=== PATIENT | female | born 1945 | race Caucasian/White ===

== ENCOUNTER → 2020-06-02 | Outpatient (CLI) | payer OTHER, MEDICARE ==
[~2020-06-02] MED LIST: BRINTELLIX20 MG PO; FLUT.05NI; HYDACE5 PO; IBUP600 PO; Mirapex1 MG; PROM25 PO; Voltaren100 GM
== END | disposition home or self-care (01) ==
LOC: LAB SHORT 15:51 → LAB 15:51
DX: N39.0 Urinary tract infection, site not specified (principal)
CPT/HCPCS: 87086

== ENCOUNTER 2020-12-27 08:51 | Emergency (ER) | payer OTHER, MEDICARE ==
[~2020-12-27] VITALS: Ht 165.1 cm; Wt 63.5 kg
[2020-12-27] MEDS ORDERED: Doxepin HC10 MG/1 ML PO (10:56)
[2020-12-27] MEDS ORDERED: Mirapex1.5 MG PO (10:57)
[2020-12-27 11:08] LABS: BASOPHILS ABSOLUTE AUTO 0.02 K/mm3 (0.00-0.23); BASOPHILS PERCENT AUTO 1 % (0-2); EOSINOPHILS ABSOLUTE AUTO 0.05 K/mm3 (0.00-0.68); EOSINOPHILS PERCENT AUTO 1 % (0-6); Hematocrit 41.4 % (33.0-51.0); Hemoglobin 13.5 g/dL (11.5-16.0); IMMATURE GRAN ABSOLUTE AUTO 0.02 K/mm3 (0.00-0.10); IMMATURE GRAN PERCENT AUTO 1 % (0-1); LYMPHOCYTES ABSOLUTE AUTO 1.41 K/mm3 (0.84-5.20); LYMPHOCYTES PERCENT AUTO 33 % (21-46); MONOCYTES ABSOLUTE AUTO 0.28 K/mm3 (0.16-1.47); MONOCYTES PERCENT AUTO 7 % (4-13); Mean Corpuscular HGB 30.2 pg (26.0-34.0); Mean Corpuscular HGB Conc 32.6 g/dL (31.5-36.5); Mean Corpuscular Volume 93 fL (80-100); Mean Platelet Volume 10.1 fL (9.1-12.4); NEUTROPHILS ABSOLUTE AUTO 2.55 K/mm3 (1.96-9.15); NEUTROPHILS PERCENT AUTO 59 % (41-73); Platelet Count 153 K/mm3 (150-400); RDW Coefficient Variation 12.8 % (11.7-14.2); RDW Standard Deviation 43.3 fL (35.1-46.3); Red Blood Cell Count 4.47 M/mm3 (3.80-5.20); White Blood Cell Count 4.33 K/mm3 (4.00-11.30)
[2020-12-27 11:32] LABS: Alanine Aminotransfer (ALT/SGP 24 U/L (12-78); Albumin, Blood 3.7 g/dL (3.4-5.0); Albumin/Globulin Ratio 1.1 (0.8-1.8); Alk Phos 72 U/L (50-136); Anion Gap 2 mmol/L (6-16); Aspartate Aminotrans (AST/SGOT 20 U/L (12-37); Bilirubin, Total 0.5 mg/dL (0.1-1.0); Blood Urea Nitrogen 13 mg/dL (8-24); Bun/Creatinine Ratio 16.6 (12.0-20.0); CO2, Blood 30 mmol/L (21-32); Calcium, Blood 8.8 mg/dL (8.5-10.1); Chloride, Blood 109 mmol/L (98-108); Creatinine, Blood 0.78 mg/dL (0.40-1.00); Globulin, Blood 3.3 g/dL (2.2-4.0); Glomerular Filtration Rate >60 (60-); Glucose, Blood 90 mg/dL (70-99); Potassium, Blood 4.1 mmol/L (3.5-5.5); Sodium, Blood 141 mmol/L (136-145); Troponin I <0.015 ng/mL (0.000-0.040)
== END 2020-12-27 11:54 | disposition home or self-care (01) ==
LOC: ER 08:51
PROVIDERS: Emergency Medicine
DX: S06.0X9A Concussion with loss of consciousness of unspecified duration, initial encounter (principal); R55 Syncope and collapse; Z88.2 Allergy status to sulfonamides; Z79.899 Other long term (current) drug therapy; W18.30XA Fall on same level, unspecified, initial encounter
CPT/HCPCS: 36415; 80053; 84484; 85025; 93005; 93010; 99284-25

== ENCOUNTER → 2021-04-06 | Outpatient (CLI) | payer OTHER, MEDICARE ==
[~2021-04-06] MED LIST changes: +Doxepin HC10 MG/1 ML PO; +Mirapex1.5 MG PO
== END | disposition home or self-care (01) ==
LOC: LAB 15:23 → LAB SHORT 15:23 → LAB FUT 03-29 14:15
DX: K62.5 Hemorrhage of anus and rectum (principal); B96.81 Helicobacter pylori [H. pylori] as the cause of diseases classified elsewhere; R13.10 Dysphagia, unspecified
CPT/HCPCS: 87338

== ENCOUNTER → 2021-04-14 | Outpatient (CLI) | payer OTHER, MEDICARE | END | disposition home or self-care (01) | LOC: LAB 13:25 → LAB SHORT 13:25 | DX: R82.90 Unspecified abnormal findings in urine (principal) | CPT/HCPCS: 87077; 87086; 87186 ==

== ENCOUNTER → 2022-11-28 | Outpatient (CLI) | payer OTHER, MEDICARE | END | disposition home or self-care (01) | LOC: LAB SHORT 15:38 | DX: N39.0 Urinary tract infection, site not specified (principal) | CPT/HCPCS: 87086 ==

== ENCOUNTER → 2023-03-22 | Outpatient (CLI) | payer OTHER, MEDICARE | LOC: LAB 13:30 → LAB SHORT 13:30 | DX: N39.0 Urinary tract infection, site not specified (principal) | CPT/HCPCS: 87077; 87086; 87186 ==

== ENCOUNTER 2023-05-29 14:48 | Inpatient (IN) | payer OTHER, MEDICARE ==
[~2023-05-29] VITALS: Ht 162.6 cm; Wt 61.2 kg
[~2023-05-29 14:48] MED LIST changes: -FLUT.05NI; +FLUT.05NI INH
[2023-05-29 15:41] LABS: BASOPHILS ABSOLUTE AUTO 0.04 K/mm3 (0.00-0.23); BASOPHILS PERCENT AUTO 0 % (0-2); EOSINOPHILS ABSOLUTE AUTO 0.11 K/mm3 (0.00-0.68); EOSINOPHILS PERCENT AUTO 1 % (0-6); Hematocrit 45.3 % (33.0-51.0); Hemoglobin 14.6 g/dL (11.5-16.0); IMMATURE GRAN ABSOLUTE AUTO 0.04 K/mm3 (0.00-0.10); IMMATURE GRAN PERCENT AUTO 0 % (0-1); LYMPHOCYTES ABSOLUTE AUTO 1.47 K/mm3 (0.84-5.20); LYMPHOCYTES PERCENT AUTO 13 % (21-46); MONOCYTES ABSOLUTE AUTO 0.48 K/mm3 (0.16-1.47); MONOCYTES PERCENT AUTO 4 % (4-13); Mean Corpuscular HGB 29.7 pg (26.0-34.0); Mean Corpuscular HGB Conc 32.2 g/dL (31.5-36.5); Mean Corpuscular Volume 92 fL (80-100); Mean Platelet Volume 9.8 fL (9.1-12.4); NEUTROPHILS ABSOLUTE AUTO 8.88 K/mm3 (1.96-9.15); NEUTROPHILS PERCENT AUTO 81 % (41-73); Platelet Count 196 K/mm3 (150-400); RDW Standard Deviation 43.8 fL (35.1-46.3); Red Blood Cell Count 4.92 M/mm3 (3.80-5.20); White Blood Cell Count 11.02 K/mm3 (4.00-11.30)
[2023-05-29 16:00] LABS: Albumin, Blood 4.4 g/dL (3.4-5.0); Albumin/Globulin Ratio 1.1 (0.8-1.8); Bilirubin, Total 0.6 mg/dL (0.1-1.0); Bun/Creatinine Ratio 20.1 (12.0-20.0); Calcium, Blood 9.7 mg/dL (8.5-10.1); Creatinine, Blood 0.75 mg/dL (0.40-1.00); Potassium, Blood 3.7 mmol/L (3.5-5.5); Total Protein, Blood 8.4 g/dL (6.4-8.2)
[2023-05-29] MEDS ORDERED: DOXE10 PO (18:24)
--- NOTE | 2023-05-29 18:33 | NUR ---
ARRIVAL TO SURGICAL UNIT TRANSFERED TO HOSPITAL BED. PLEASANT, ALERT, + ORIENTED. EXCITED TO EAT DINNER SO VS + ASSESSMENT POST PONED, BUT ADMISSION HX COMPLETED. DENIES FURTHER NEEDS.
[2023-05-29 19:15] VITALS: BP 146/59
[2023-05-30] VITALS (17 sets, daily range): BP systolic 105–136; BP diastolic 49–100
[2023-05-30 04:33] LABS: Hematocrit 37.6 % (33.0-51.0); Hemoglobin 12.3 g/dL (11.5-16.0); Mean Corpuscular HGB 29.9 pg (26.0-34.0); Mean Corpuscular HGB Conc 32.7 g/dL (31.5-36.5); Mean Corpuscular Volume 91 fL (80-100); Platelet Count 159 K/mm3 (150-400); RDW Coefficient Variation 13.1 % (11.7-14.2); RDW Standard Deviation 43.9 fL (35.1-46.3); Red Blood Cell Count 4.12 M/mm3 (3.80-5.20); White Blood Cell Count 6.73 K/mm3 (4.00-11.30)
[2023-05-30 04:53] LABS: Bun/Creatinine Ratio 18.6 (12.0-20.0); Calcium, Blood 8.8 mg/dL (8.5-10.1); Creatinine, Blood 0.75 mg/dL (0.40-1.00); Potassium, Blood 4.2 mmol/L (3.5-5.5)
--- NOTE | 2023-05-30 05:09 | NUR ---
SHIFT SUMMARY NOC. PT PREOP FOR R HIP FRACTURE. PT WAS PAINFUL AND TEARFUL WHEN PAIN REACHED 6/10. PT MEDICATED PER EMAR WITH RELIEF OF SX X2. PT HAS PURE WICK IN PLACE AND IS VOIDING. PT A/O X4 AND CALLS APPROPRIATLY. PT HAS BEEN NPO SINCE MIDNIGHT AND SURGICAL CHG WIPE/PREP COMPLETED AT 0300. PT RESTED WITH EYES CLOSED AND CALL LIGHT IN REACH.
--- NOTE | 2023-05-30 13:50 | NUR ---
TO DAY SURGERY VIA HOSPITAL BED
--- NOTE | 2023-05-30 14:21 | NUR ---
Arrived to Day Surgery via [facility]. Patient confirms NPO status and agrees with scheduled surgery. Surgical site prepped with 2% Chlorhexidine cloth wipe.
--- NOTE | 2023-05-30 16:35 | NUR ---
POST OP ARRIVAL IN HOSPITAL BED. ALERT & ORIENTED. PLEASANT. DENIES N/V. REPORTS PAIN TOLERABLE; WILL MEDICATE ONCE HAS HAD SOME SNACKS & DRINKS w/o NAUSEA. R HIP w/ BRUISING ON THIGH/BUTTOCKS & GAUZE & PRESURE TAPE. NO DRNG NOTED. PPP. WIGGLES TOES. LUNGS CLEAR.
--- NOTE | 2023-05-31 01:41 | NUR ---
PHARMACY CLARIFICATION. LATE ENTRY. CALLED PLACED TO [facility] IN PHARMACY. VERIFIED COMPATIBILITY BETWEEN ANCEF AND D5W1/NS KCL 20 MEQ.
[2023-05-31 04:18] VITALS: BP 114/84
[2023-05-31 04:52] LABS: BASOPHILS ABSOLUTE AUTO 0.01 K/mm3 (0.00-0.23); BASOPHILS PERCENT AUTO 0 % (0-2); EOSINOPHILS ABSOLUTE AUTO 0.01 K/mm3 (0.00-0.68); EOSINOPHILS PERCENT AUTO 0 % (0-6); Hematocrit 39.6 % (33.0-51.0); Hemoglobin 12.5 g/dL (11.5-16.0); IMMATURE GRAN ABSOLUTE AUTO 0.03 K/mm3 (0.00-0.10); IMMATURE GRAN PERCENT AUTO 0 % (0-1); LYMPHOCYTES ABSOLUTE AUTO 0.75 K/mm3 (0.84-5.20); LYMPHOCYTES PERCENT AUTO 10 % (21-46); MONOCYTES ABSOLUTE AUTO 0.17 K/mm3 (0.16-1.47); MONOCYTES PERCENT AUTO 2 % (4-13); Mean Corpuscular HGB 29.4 pg (26.0-34.0); Mean Corpuscular HGB Conc 31.6 g/dL (31.5-36.5); Mean Corpuscular Volume 93 fL (80-100); Mean Platelet Volume 10.3 fL (9.1-12.4); NEUTROPHILS ABSOLUTE AUTO 6.96 K/mm3 (1.96-9.15); NEUTROPHILS PERCENT AUTO 88 % (41-73); Platelet Count 157 K/mm3 (150-400); Red Blood Cell Count 4.25 M/mm3 (3.80-5.20); White Blood Cell Count 7.93 K/mm3 (4.00-11.30)
--- NOTE | 2023-05-31 05:20 | NUR ---
SHIFT SUMMARY NOC. PT POD 1 FOR RIGHT HIP PINNING. PT A/O X4, IS TOLERATING PO INTAKE, AND VOIDING URINE. PT UP TO THE BEDSIDE COMMODE TO VOID. PT DENIES PAIN HIGHER THAN A "1/10" THIS SHIFT AND HAS NOT HAD PRN PAIN MEDICATION. DRESSING ON RIGHT HIP IS CLEAN, DRY, AND INTACT. PT RESTED WITH EYES CLOSED AND CALL LIGHT IN REACH.
[2023-05-31 05:46] LABS: Magnesium, Blood 2.4 mg/dL (1.6-2.4)
[2023-05-31 05:47] LABS: Creatinine, Blood 0.71 mg/dL (0.40-1.00); Potassium, Blood 4.1 mmol/L (3.5-5.5)
[2023-05-31 07:19] VITALS: BP 135/61
--- NOTE | 2023-05-31 15:11 | NUR ---
DISCHARGE ESCORTED OUT VIA WC. DID VERY WELL w/ PT & OT. PLEASANT & EXCITED TO GO HOME. EATING, DRINKING, & VOIDING EASILY. DENIES SIGNIFICANT PAIN & THINKS SHE CAN MANAGE IT w/ TYLENOL AT HOME. TANK SENT & ICE & ELEVATION STRESSED.
== END 2023-05-31 15:11 | disposition home health service (06) | DRG 482 ==
LOC: ER 14:48 → SURS 15:53
PROVIDERS: Orthopaedic Surgery; Student in an Organized Health Care Education/Training Program; ADMIT Internal Medicine
PROC: 0QS604Z Reposition Right Upper Femur with Internal Fixation Device, Open Approach (ICD-10-PCS; principal; 2023-05-30 14:30)
DX: S72.011A Unspecified intracapsular fracture of right femur, initial encounter for closed fracture (principal); F41.9 Anxiety disorder, unspecified; G25.81 Restless legs syndrome; M19.90 Unspecified osteoarthritis, unspecified site; W18.30XA Fall on same level, unspecified, initial encounter; Z96.651 Presence of right artificial knee joint; M21.051 Valgus deformity, not elsewhere classified, right hip; Z88.2 Allergy status to sulfonamides; Z79.51 Long term (current) use of inhaled steroids
CPT/HCPCS: 36415; 80048; 80053; 83735; 85025; 85027; 96374; 96375; 97110; 97116; 97162; 97165; 97530; 97535; 99284-25; A9270; C1713; C1769; J0690; J1100; J1650; J2405; J2704; J3010; J3370; J7120

== ENCOUNTER 2023-08-30 11:49 | Day surgery (SDC) | payer MEDICARE, OTHER ==
[~2023-08-30] VITALS: Ht 160 cm; Wt 68.8 kg
[~2023-08-30 11:49] MED LIST changes: +AMLO5 PO; +DOXE10 PO; +DULO60 PO
[2023-08-30] MEDS ORDERED: ASPI81CH PO (12:04)
[2023-08-30 13:36] VITALS: BP 146/71
--- NOTE | 2023-08-30 13:49 | NUR ---
08/30/23 1349 Genaro Amos IV REMOVED INTACT. SITE WNL.
== END 2023-08-30 13:45 | disposition home or self-care (01) ==
LOC: ORSCSDS 11:49
PROVIDERS: Ophthalmology
PROC: 08RJ3JZ Replacement of Right Lens with Synthetic Substitute, Percutaneous Approach (ICD-10-PCS; principal; 2023-08-30 13:00)
DX: H25.13 Age-related nuclear cataract, bilateral (principal); I10 Essential (primary) hypertension; J45.909 Unspecified asthma, uncomplicated; G47.33 Obstructive sleep apnea (adult) (pediatric); Z79.899 Other long term (current) drug therapy
CPT/HCPCS: J2001; J2250; J2405; J3010; J3301; J7040; V2632

== ENCOUNTER 2023-09-06 12:06 | Day surgery (SDC) | payer OTHER, MEDICARE ==
[~2023-09-06] VITALS: Ht 160 cm; Wt 69.1 kg
[~2023-09-06 12:06] MED LIST changes: +ASPI81CH PO
--- NOTE | 2023-09-06 12:31 | NUR ---
09/06/23 1231 Gini Quach AT [address] [place] AT 1223
[2023-09-06 14:07] VITALS: BP 117/58
== END 2023-09-06 14:09 | disposition home or self-care (01) ==
LOC: ORSCSDS 12:06
PROVIDERS: Ophthalmology
PROC: 08RK3JZ Replacement of Left Lens with Synthetic Substitute, Percutaneous Approach (ICD-10-PCS; principal; 2023-09-06 13:30)
DX: H25.12 Age-related nuclear cataract, left eye (principal); Z96.1 Presence of intraocular lens; I10 Essential (primary) hypertension; G47.33 Obstructive sleep apnea (adult) (pediatric); Z79.82 Long term (current) use of aspirin; Z79.899 Other long term (current) drug therapy
CPT/HCPCS: J2001; J2250; J2405; J3010; J3301; J7040; V2632

== ENCOUNTER → 2024-11-21 | Outpatient (CLI) | payer OTHER, MEDICARE ==
[~2024-11-21] MED LIST changes: +BETA.05TCA TOP; +CALCIUM CIT 311 EAC7 PO; +CYCL10 PO; +FLUTICASONE P10.6 GM; +Retin-A15 GM; +Vitamin C100 M1 PO; +Voltaren100 GM TOP
== END ==
LOC: LAB 16:47 → LAB SHORT 16:47
DX: N39.0 Urinary tract infection, site not specified (principal); R35.0 Frequency of micturition
CPT/HCPCS: 87086